=== PATIENT | male | born 1930 | race Caucasian/White ===

== ENCOUNTER 2017-08-03 15:08 | Inpatient (IN) | payer OTHER ==
[~2017-08-03] VITALS: Ht 167.6 cm; Wt 76.4 kg
[~2017-08-03 15:08] MED LIST: COUMADIN,JANTOVE5 MG PO; NORVASC2.5 MG PO
[2017-08-03 17:17] LABS: HEMATOCRIT 42.6 % (38.0-50.0); HEMOGLOBIN 14.9 G/DL (12.5-16.6); MCH 32.9 PG (29.0-34.0); PLATELET COUNT 151 K/uL (156-360); RBC DIS.WIDTH-CV 13.3 % (11.8-14.6); RBC DIS.WIDTH-SD 45.8 % (39-53); RED BLOOD COUNT 4.53 M/uL (4.00-5.50)
[2017-08-03 17:25] LABS: ALBUMIN 4.7 g/dL (3.2-4.8)
[2017-08-03 17:26] LABS: AMYLASE 81 IU/L (1-118); CHLORIDE 105 mEq/L (99-109); POTASSIUM 4.6 mEq/L (3.7-5.4); SODIUM 139 mEq/L (136-147)
[2017-08-03 17:28] LABS: GLUCOSE 135 mg/dL (70-99)
[2017-08-03 17:30] LABS: TOTAL BILIRUBIN 0.7 mg/dL (0.0-1.0)
[2017-08-03 17:31] LABS: ALKALINE PHOSPHATASE 89 IU/L (3-129)
[2017-08-03 17:32] LABS: CREATININE 1.6 mg/dL (0.6-1.3); GFR ESTIMATE (CALCULATED) 44 mL/min/ (58.99-99999)
[2017-08-03 17:33] LABS: AST (GOT) 20 IU/L (2-34); UREA NITROGEN (BUN) 24 mg/dL (9-23)
[2017-08-03 17:34] LABS: ALT (GPT) 15 IU/L (3-49)
[2017-08-03 17:35] LABS: LIPASE 30 U/L (1.0-51.0)
[2017-08-03 18:25] LABS: TROP-I INTERPRETATION NEGATIVE; TROPONIN-I 0.01 ng/mL (0.0-0.30)
[2017-08-03] MEDS ORDERED: VITAMIN D31000 UNIT PO (20:34)
[2017-08-03] MEDS ORDERED: CYANOCOBALAM1000 MCG PO (20:34)
[2017-08-04 00:57] VITALS: BP 130/75
[2017-08-04 04:17] VITALS: BP 124/62
[2017-08-04 05:13] LABS: HEMATOCRIT 39.2 % (38.0-50.0); HEMOGLOBIN 13.5 G/DL (12.5-16.6); MCH 32.8 PG (29.0-34.0); MCHC 34.4 G/DL (30.0-36.0); MCV 95.1 FL (86-99); PLATELET COUNT 129 K/uL (156-360); RBC DIS.WIDTH-CV 13.5 % (11.8-14.6); RBC DIS.WIDTH-SD 47.3 % (39-53); RED BLOOD COUNT 4.12 M/uL (4.00-5.50); WHITE BLOOD COUNT 8.5 K/uL (4.1-10.2)
[2017-08-04 05:21] LABS: CHLORIDE 109 mEq/L (99-109); POTASSIUM 5.3 mEq/L (3.7-5.4); SODIUM 141 mEq/L (136-147)
[2017-08-04 05:23] LABS: GLUCOSE 120 mg/dL (70-99)
[2017-08-04 05:27] LABS: CREATININE 1.4 mg/dL (0.6-1.3); GFR ESTIMATE (CALCULATED) 51 mL/min/ (58.99-99999); UREA NITROGEN (BUN) 21 mg/dL (9-23)
[2017-08-04 07:16] VITALS: BP 117/65
[2017-08-04 11:28] VITALS: BP 138/67
[2017-08-04 16:15] VITALS: BP 131/67
[2017-08-04 20:24] VITALS: BP 147/70
[2017-08-05] VITALS (7 sets, daily range): BP systolic 141–163; BP diastolic 76–84
[2017-08-06 03:17] VITALS: BP 149/80
[2017-08-06 06:48] LABS: HEMATOCRIT 43.9 % (38.0-50.0); HEMOGLOBIN 14.9 G/DL (12.5-16.6); MCHC 33.9 G/DL (30.0-36.0); MCV 94.4 FL (86-99); PLATELET COUNT 161 K/uL (156-360); RBC DIS.WIDTH-CV 13.3 % (11.8-14.6); RBC DIS.WIDTH-SD 46.5 % (39-53); RED BLOOD COUNT 4.65 M/uL (4.00-5.50); WHITE BLOOD COUNT 20.6 K/uL (4.1-10.2)
[2017-08-06 07:13] LABS: CHLORIDE 101 MEQ/L (99-109); CREATININE 1.5 MG/DL (0.6-1.3); GFR ESTIMATE (CALCULATED) 47 mL/min/ (58.99-99999); GLUCOSE 158 mg/dL (70-99); POTASSIUM 4.4 MEQ/L (3.7-5.4); SODIUM 134 MEQ/L (136-147); UREA NITROGEN (BUN) 20 mg/dL (9-23)
[2017-08-06 07:15] VITALS: BP 157/99
[2017-08-06 11:37] VITALS: BP 134/82
[2017-08-06 15:47] VITALS: BP 144/73
[2017-08-06 19:14] VITALS: BP 121/75
[2017-08-06 22:17] VITALS: BP 114/62
[2017-08-07] VITALS (12 sets, daily range): BP systolic 92–133; BP diastolic 56–73
[2017-08-07 09:51] LABS: HEMATOCRIT 39.1 % (38.0-50.0); HEMOGLOBIN 13.5 G/DL (12.5-16.6); MCH 32.2 PG (29.0-34.0); MCHC 34.5 G/DL (30.0-36.0); MCV 93.3 FL (86-99); PLATELET COUNT 136 K/uL (156-360); RBC DIS.WIDTH-CV 13.6 % (11.8-14.6); RBC DIS.WIDTH-SD 46.3 % (39-53); RED BLOOD COUNT 4.19 M/uL (4.00-5.50); WHITE BLOOD COUNT 11.2 K/uL (4.1-10.2)
[2017-08-07 10:05] LABS: CHLORIDE 101 MEQ/L (99-109); GFR ESTIMATE (CALCULATED) 32 mL/min/ (58.99-99999); POTASSIUM 4.9 MEQ/L (3.7-5.4); SODIUM 134 MEQ/L (136-147)
[2017-08-07 10:06] LABS: CREATININE 2.1 MG/DL (0.6-1.3); GLUCOSE 106 mg/dL (70-99); UREA NITROGEN (BUN) 39 mg/dL (9-23)
[2017-08-07 16:48] LABS: TROP-I INTERPRETATION NEGATIVE; TROPONIN-I 0.03 ng/mL (0.0-0.30)
[2017-08-07 17:49] LABS: CHLORIDE 99 MEQ/L (99-109); CREATININE 2.4 MG/DL (0.6-1.3); GFR ESTIMATE (CALCULATED) 27 mL/min/ (58.99-99999); GLUCOSE 95 mg/dL (70-99); MAGNESIUM 2.2 mg/dl (1.3-2.7); SODIUM 135 MEQ/L (136-147); UREA NITROGEN (BUN) 47 mg/dL (9-23)
[2017-08-08 04:03] VITALS: BP 108/70
[2017-08-08 05:40] LABS: HEMATOCRIT 37.8 % (38.0-50.0); HEMOGLOBIN 12.5 G/DL (12.5-16.6); MCH 31.3 PG (29.0-34.0); MCHC 33.1 G/DL (30.0-36.0); MCV 94.5 FL (86-99); PLATELET COUNT 137 K/uL (156-360); RBC DIS.WIDTH-CV 13.7 % (11.8-14.6); RBC DIS.WIDTH-SD 47.5 % (39-53); WHITE BLOOD COUNT 8.2 K/uL (4.1-10.2)
[2017-08-08 06:14] LABS: CHLORIDE 107 MEQ/L (99-109); CREATININE 2.3 MG/DL (0.6-1.3); GFR ESTIMATE (CALCULATED) 29 mL/min/ (58.99-99999); GLUCOSE 79 mg/dL (70-99); POTASSIUM 4.4 MEQ/L (3.7-5.4); SODIUM 141 MEQ/L (136-147); UREA NITROGEN (BUN) 53 mg/dL (9-23)
[2017-08-08 08:48] VITALS: BP 119/74
[2017-08-08 11:31] VITALS: BP 135/78
[2017-08-08 19:45] VITALS: BP 125/65
[2017-08-08 23:50] VITALS: BP 116/76
[2017-08-09 04:06] VITALS: BP 122/83
[2017-08-09 08:36] VITALS: BP 141/78
[2017-08-09 10:49] LABS: CHLORIDE 108 MEQ/L (99-109); CREATININE 1.9 MG/DL (0.6-1.3); GFR ESTIMATE (CALCULATED) 36 mL/min/ (58.99-99999); PHOSPHORUS 4.1 mg/dL (2.5-4.9); POTASSIUM 4.3 MEQ/L (3.7-5.4); PREALBUMIN 8.9 mg/dL (10-40); UREA NITROGEN (BUN) 51 mg/dL (9-23)
[2017-08-09 10:53] LABS: GLUCOSE 101 mg/dL (70-99); MAGNESIUM 2.7 mg/dl (1.3-2.7); SODIUM 149 MEQ/L (136-147)
[2017-08-09 12:07] VITALS: BP 127/81
[2017-08-09 15:21] VITALS: BP 127/61
[2017-08-09 20:17] VITALS: BP 140/88
[2017-08-09 23:52] VITALS: BP 181/97
[2017-08-10] VITALS (7 sets, daily range): BP systolic 117–154; BP diastolic 71–95
[2017-08-10 06:03] LABS: HEMATOCRIT 40.5 % (38.0-50.0); HEMOGLOBIN 13.4 G/DL (12.5-16.6); MCH 31.5 PG (29.0-34.0); MCHC 33.1 G/DL (30.0-36.0); MCV 95.3 FL (86-99); PLATELET COUNT 166 K/uL (156-360); RBC DIS.WIDTH-CV 13.6 % (11.8-14.6); RED BLOOD COUNT 4.25 M/uL (4.00-5.50); WHITE BLOOD COUNT 5.8 K/uL (4.1-10.2)
[2017-08-10 06:25] LABS: ALBUMIN 3.7 G/DL (3.2-4.8); ALKALINE PHOSPHATASE 50 IU/L (3-129); ALT (GPT) 15 IU/L (3-49); AST (GOT) 16 IU/L (2-34); CHLORIDE 108 MEQ/L (99-109); CREATININE 1.7 MG/DL (0.6-1.3); DIRECT BILIRUBIN 0.1 mg/dL (0.0-0.3); GFR ESTIMATE (CALCULATED) 41 mL/min/ (58.99-99999); MAGNESIUM 2.5 mg/dl (1.3-2.7); POTASSIUM 4.1 MEQ/L (3.7-5.4); SODIUM 145 MEQ/L (136-147); TOTAL BILIRUBIN 0.5 MG/DL (0.0-1.0); TOTAL PROTEIN 6.7 G/DL (6.4-8.3); TRIGLYCERIDES 184 MG/DL (Normal: <150); UREA NITROGEN (BUN) 45 mg/dL (9-23)
[2017-08-10 06:26] LABS: GLUCOSE 161 mg/dL (70-99); PHOSPHORUS 2.4 mg/dL (2.5-4.9)
[2017-08-10 07:15] LABS: EOSINOPHIL ABS CT 0; LYMPHOCYTES 9.7 % (15.0-45.0); MICROCYTOSIS 1+; MONOCYTES 21.3 % (0-9.0); PLAT.SUFFICIENCY ADEQUATE
[2017-08-11] VITALS (7 sets, daily range): BP systolic 116–153; BP diastolic 71–90
[2017-08-11 05:28] LABS: HEMATOCRIT 37.4 % (38.0-50.0); HEMOGLOBIN 11.9 G/DL (12.5-16.6); MCH 31.5 PG (29.0-34.0); MCHC 31.8 G/DL (30.0-36.0); MCV 98.9 FL (86-99); PLATELET COUNT 139 K/uL (156-360); RBC DIS.WIDTH-CV 13.4 % (11.8-14.6); RBC DIS.WIDTH-SD 49.1 % (39-53); RED BLOOD COUNT 3.78 M/uL (4.00-5.50)
[2017-08-11 06:01] LABS: CHLORIDE 110 MEQ/L (99-109); CREATININE 1.3 MG/DL (0.6-1.3); GFR ESTIMATE (CALCULATED) 56 mL/min/ (58.99-99999); PHOSPHORUS 2.8 mg/dL (2.5-4.9); POTASSIUM 4.3 MEQ/L (3.7-5.4); SODIUM 143 MEQ/L (136-147); UREA NITROGEN (BUN) 29 mg/dL (9-23)
[2017-08-11 06:13] LABS: GLUCOSE 119 mg/dL (70-99); MAGNESIUM 2.1 mg/dl (1.3-2.7)
[2017-08-12 05:14] VITALS: BP 132/86
[2017-08-12 06:27] LABS: CHLORIDE 110 MEQ/L (99-109); CREATININE 1.2 MG/DL (0.6-1.3); GFR ESTIMATE (CALCULATED) > 59 mL/min/ (58.99-99999); GLUCOSE 108 mg/dL (70-99); MAGNESIUM 1.8 mg/dl (1.3-2.7); PHOSPHORUS 2.7 mg/dL (2.5-4.9); POTASSIUM 3.6 MEQ/L (3.7-5.4); SODIUM 140 MEQ/L (136-147); UREA NITROGEN (BUN) 27 mg/dL (9-23)
[2017-08-12 07:53] VITALS: BP 134/87
[2017-08-12 12:08] VITALS: BP 122/81
[2017-08-12 15:30] VITALS: BP 116/73
[2017-08-12 19:33] VITALS: BP 118/78
[2017-08-12 23:15] VITALS: BP 102/80
[2017-08-13 04:00] VITALS: BP 140/82
[2017-08-13 06:33] LABS: CHLORIDE 109 MEQ/L (99-109); GFR ESTIMATE (CALCULATED) > 59 mL/min/ (58.99-99999); GLUCOSE 124 mg/dL (70-99); MAGNESIUM 1.7 mg/dl (1.3-2.7); PHOSPHORUS 3.4 mg/dL (2.5-4.9); POTASSIUM 3.8 MEQ/L (3.7-5.4); SODIUM 137 MEQ/L (136-147); UREA NITROGEN (BUN) 24 mg/dL (9-23)
[2017-08-13 07:10] VITALS: BP 95/65
[2017-08-13 11:38] VITALS: BP 104/62
[2017-08-13 15:14] VITALS: BP 105/66
[2017-08-13 19:45] VITALS: BP 117/64
[2017-08-13 22:50] VITALS: BP 119/64
[2017-08-14 03:00] VITALS: BP 107/59
[2017-08-14 06:13] LABS: CHLORIDE 108 MEQ/L (99-109); CREATININE 1.2 MG/DL (0.6-1.3); GFR ESTIMATE (CALCULATED) > 59 mL/min/ (58.99-99999); GLUCOSE 121 mg/dL (70-99); PHOSPHORUS 3.8 mg/dL (2.5-4.9); POTASSIUM 3.9 MEQ/L (3.7-5.4); SODIUM 139 MEQ/L (136-147); UREA NITROGEN (BUN) 36 mg/dL (9-23)
[2017-08-14 06:17] LABS: MAGNESIUM 2.2 mg/dl (1.3-2.7)
[2017-08-14 07:25] VITALS: BP 103/65
[2017-08-14 11:18] VITALS: BP 92/58
[2017-08-14] MEDS ORDERED: LOPRESSOR50 MG PO (12:06)
== END 2017-08-14 14:33 | disposition home or self-care (01) | DRG 336 ==
LOC: EME 15:08 → EDOF 20:12 → 4EAST 20:12 → ENRESERV 20:32 → 4EAST 08-04 00:48
PROVIDERS: Hospitalist; Physician Assistant; Physician Assistant Surgical; Surgery
PROC: 3E0436Z Introduction of Nutritional Substance into Central Vein, Percutaneous Approach (ICD-10-PCS; 2017-08-09)
PROC: 0DN80ZZ Release Small Intestine, Open Approach (ICD-10-PCS; principal; 2017-08-10)
DX: K56.50 Intestinal adhesions [bands], unspecified as to partial versus complete obstruction (principal); E44.0 Moderate protein-calorie malnutrition; E86.0 Dehydration; I95.9 Hypotension, unspecified; I12.9 Hypertensive chronic kidney disease with stage 1 through stage 4 chronic kidney disease, or unspecified chronic kidney disease; N18.9 Chronic kidney disease, unspecified; I35.2 Nonrheumatic aortic (valve) stenosis with insufficiency; I48.0 Paroxysmal atrial fibrillation; I48.92 Unspecified atrial flutter; I71.2 Thoracic aortic aneurysm, without rupture; I71.4 Abdominal aortic aneurysm, without rupture; Z96.642 Presence of left artificial hip joint; Z87.891 Personal history of nicotine dependence; Z86.718 Personal history of other venous thrombosis and embolism; Q43.8 Other specified congenital malformations of intestine; Z79.01 Long term (current) use of anticoagulants
CPT/HCPCS: 71045; 74018; 74019; 74021; 74022; 74177; 76937; 80048; 80048 91; 80053; 82150; 82248; 82330; 82948; 83605; 83690; 83735; 84100; 84134; 84478; 84484; 84630 90; 85025; 85027; 87040; 87641; 93005; 94799; 99281; 99285; C9113; J0131; J0295; J0330; J0610; J0690; J1100; J1170; J1650; J1940; J2405; J2710; J3010; J3230; J7030; J7040; J7050; S0028